=== PATIENT | female | born 1975 | race Caucasian/White ===

== ENCOUNTER 2016-07-24 06:57 | Emergency (ER) | payer MEDICAID ==
[~2016-07-24] VITALS: Ht 172.7 cm; Wt 75.0 kg
[~2016-07-24 06:57] MED LIST: DOCU-150 PO; FERR-63 PO; FOLI-43 PO; POTA20TA75 PO
[2016-07-24 08:26] LABS: BASOPHILS % 1.2 % (0.0-2.0); EOSINOPHILS % 1.5 % (0.0-5.0); HEMATOCRIT. 25.4 % (36.0-48.0); HEMOGLOBIN. 7.7 g/dL (12.0-16.0); LYMPHOCYTES % 26.1 % (20.0-50.0); MEAN CORPUSCULAR HEMOGLOBIN 19.8 pg (28.0-32.0); MEAN CORPUSCULAR HGB CONC 30.3 g/dL (31.0-37.0); MEAN CORPUSCULAR VOLUME 65.4 fL (81.0-99.0); MEAN PLATELET VOLUME 8.7 fl (7.4-10.4); MONOCYTES % 10.2 % (2.0-8.0); PLATELET 183 x1000/uL (130-400); RED BLOOD CELL COUNT 3.89 mill/uL (4.2-5.4); RED CELL DISTRIBUTION WIDTH 18.4 % (11.6-14.6); WHITE BLOOD COUNT 3.8 x1000/uL (4.5-11.0)
[2016-07-24 08:31] LABS: PARTIAL THROMBOPLASTIN TIME 25.7 sec (24.0-34.0); PROTHROMBIN TIME 10.4 sec
[2016-07-24 08:33] LABS: ADD RBC MORPHOLOGY YES; ALBUMIN 3.6 g/dL (3.4-5.0); ANION GAP 11; CALCIUM 8.5 mg/dL (8.5-10.1); CARBON DIOXIDE 26 mEq/L (21-32); CHLORIDE 111 mEq/L (98-107); DIFFERENTIAL COMMENT 1; INDEX HEMOLYSI 1 (1-3); INDEX ICTERIC 1 (1-4); INDEX LIPEMIC 1 (1-3); LIPASE 123 IU/L (73-393); UREA NITROGEN BLOOD 10 mg/dL (7-21)
[2016-07-24 08:39] LABS: ALANINE AMINOTRANSFERASE 17 IU/L (13-61); TROPONIN I < 0.02 ng/mL (0.00-0.04); eGFR > 60 mL/min (>60)
[2016-07-24 08:45] LABS: ANISOCYTOSIS 2+; PLATELET ESTIMATE NORMAL
[2016-07-24 08:47] LABS: HYPOCHROMASIA 2+
[2016-07-24] MEDS ORDERED: IBUPROFEN 400MG TABLET PO ONE (11:30)
[2016-07-24 12:05] VITALS: BP 123/78
== END 2016-07-24 12:08 | disposition home or self-care (01) ==
LOC: ER 08:45
DX: R07.89 Other chest pain (principal); Z79.899 Other long term (current) drug therapy; Z98.890 Other specified postprocedural states
CPT/HCPCS: 36415; 71010; 80053; 83690; 84484; 85025; 85610; 85730; 93005; 99285

== ENCOUNTER 2016-09-21 17:12 | Inpatient (IN) | payer MEDICAID ==
[~2016-09-21] VITALS: Ht 172.7 cm; Wt 79.4 kg
[2016-09-21 19:44] LABS: BASOPHILS % 0.8 % (0.0-2.0); CHLORIDE 109 mEq/L (98-107); HEMATOCRIT. 25.3 % (36.0-48.0); HEMOGLOBIN. 7.4 g/dL (12.0-16.0); LYMPHOCYTES % 25.5 % (20.0-50.0); MEAN CORPUSCULAR HEMOGLOBIN 17.8 pg (28.0-32.0); MEAN CORPUSCULAR VOLUME 61.1 fL (81.0-99.0); MEAN PLATELET VOLUME 9.1 fl (7.4-10.4); MONOCYTES % 9.1 % (2.0-8.0); NEUTROPHILS % 62.6 % (40.0-76.0); PLATELET 228 x1000/uL (130-400); RED BLOOD CELL COUNT 4.14 mill/uL (4.2-5.4); RED CELL DISTRIBUTION WIDTH 18.6 % (11.6-14.6)
[2016-09-21 19:44] LABS: CLARITY URINE CLOUDY (CLEAR); COLOR URINE YELLOW (YELLOW); GLUCOSE URINE NEGATIVE (NEGATIVE); KETONES URINE NEGATIVE (NEGATIVE); LEUKOCYTE ESTERASE URINE 3+ (NEGATIVE); NITRITE URINE NEGATIVE (NEGATIVE); OCCULT BLOOD URINE 1+ (NEGATIVE); PH URINE 5.5 (4.5-8.0); PROTEIN URINE NEGATIVE (NEGATIVE); SPECIFIC GRAVITY URINE 1.013 (1.005-1.030); UROBILINOGEN URINE 0.2 E.U./dL (0.2-1.0)
[2016-09-21 19:45] LABS: PROTHROMBIN TIME 10.4 sec
[2016-09-21 19:52] LABS: CARBON DIOXIDE 29 mEq/L (21-32)
[2016-09-21 20:43] LABS: PLATELET ESTIMATE NORMAL
[2016-09-21] MEDS ORDERED: CEFTRIAXONE 1 G PREMIX 50 ML IV ONE (20:45)
[2016-09-21 21:46] LABS: *AMPHETAMINES SCREEN URINE NEGATIVE (NEGATIVE); *BARBITURATES SCREEN URINE NEGATIVE (NEGATIVE); *BENZODIAZEPINES SCREEN URINE NEGATIVE (NEGATIVE); *COCAINE SCREEN URINE NEGATIVE (NEGATIVE); CANNABINOID URINE SCREEN NEGATIVE (NEGATIVE); METHADONE URINE SCREEN NEGATIVE (NEGATIVE); OPIATES URINE SCREEN NEGATIVE (NEGATIVE); PHENCYCLIDINE URINE SCREEN NEGATIVE (NEGATIVE)
[2016-09-21] MEDS: CEFTRIAXONE 1 G PREMIX 50 ML IV NR ×2 (21:51→22:02)
[2016-09-21] MEDS ORDERED: IPRATROPIUM/ALBUTEROL 0.5-3(2.5)MG/3ML NEB INH PRN (22:30)
[2016-09-21] MEDS ORDERED: CLONIDINE 0.1MG TABLET PO PRN (22:30)
[2016-09-21] MEDS ORDERED: ONDANSETRON HCL 4MG/2ML VIAL IV PRN (22:30)
[2016-09-21] MEDS ORDERED: MAGNESIUM/ALUMINUM HYDROXIDE/SIMETHICONE 30ML UDC PO PRN (22:30)
[2016-09-21 22:48] LABS: CARBON DIOXIDE 30 mEq/L (21-32); CHLORIDE 109 mEq/L (98-107); TOTAL IRON BINDING CAPACITY 419 ug/dL (250-450)
[2016-09-21 23:30] VITALS: BP 113/77
[2016-09-22] VITALS (12 sets, daily range): BP systolic 94–113; BP diastolic 56–98
[2016-09-22 08:03] LABS: CREATINE KINASE 64 IU/L (26-192); CREATINE KINASE MB FRACTION 1.3 ng/mL (0.5-3.6); TROPONIN I < 0.02 ng/mL (0.00-0.04)
[2016-09-22 08:34] LABS: UCG SCREEN NEGATIVE
[2016-09-22] MEDS: NITROFURANTOIN 100MG M/M CAPSULE PO SCH ×2 (09:03→21:45)
[2016-09-22] MEDS ORDERED: LEVO500T15 PO (12:56)
[2016-09-22] MEDS: ACETAMINOPHEN 325MG TABLET PO PRN ×2 (13:56→21:45)
[2016-09-22 15:18] LABS: HEMATOCRIT. 29.4 % (36.0-48.0); MEAN CORPUSCULAR HEMOGLOBIN 19.3 pg (28.0-32.0); MEAN CORPUSCULAR VOLUME 63.3 fL (81.0-99.0); MEAN PLATELET VOLUME 9.1 fl (7.4-10.4); PLATELET 213 x1000/uL (130-400); RED BLOOD CELL COUNT 4.64 mill/uL (4.2-5.4); RED CELL DISTRIBUTION WIDTH 19.8 % (11.6-14.6)
[2016-09-22 15:34] LABS: CREATINE KINASE 76 IU/L (26-192); CREATINE KINASE MB FRACTION 1.1 ng/mL (0.5-3.6); TROPONIN I < 0.02 ng/mL (0.00-0.04)
[2016-09-22] MEDS ORDERED: FAMOTIDINE 20MG/2ML VIAL IV SCH (15:45)
[2016-09-22] MEDS ORDERED: METHYLPREDNISOLONE SOD SUCC 40 MG/ML VIAL IV SCH (15:45)
[2016-09-22 15:55] LABS: PLATELET ESTIMATE NORMAL
[2016-09-22] MEDS: DIPHENHYDRAMINE 50MG/ML VIAL IV PRN ×2 (15:59→21:45)
[2016-09-23] VITALS: BP 103/62
[2016-09-23 04:00] VITALS: BP 105/51
[2016-09-23] MEDS: ACETAMINOPHEN 325MG TABLET PO PRN ×2 (04:44→12:15)
[2016-09-23] MEDS: DIPHENHYDRAMINE 50MG/ML VIAL IV PRN (04:44)
[2016-09-23 07:49] VITALS: BP 92/52
[2016-09-23] MEDS: NITROFURANTOIN 100MG M/M CAPSULE PO SCH (08:38)
[2016-09-23 12:13] VITALS: BP 109/59
[2016-09-23 13:22] VITALS: BP 109/59
== END 2016-09-23 18:55 | disposition home or self-care (01) | DRG 463 ==
LOC: ER 17:56 → EDBEDREQ 21:07 → 8WST 21:08 → ENRESERV 22:14 → 8WST 23:53
PROVIDERS: ADMIT Internal Medicine; ATTEND Internal Medicine
PROC: 30233N1 Transfusion of Nonautologous Red Blood Cells into Peripheral Vein, Percutaneous Approach (ICD-10-PCS; principal; 2016-09-22)
DX: N39.0 Urinary tract infection, site not specified (principal); D62 Acute posthemorrhagic anemia; G40.909 Epilepsy, unspecified, not intractable, without status epilepticus; N92.0 Excessive and frequent menstruation with regular cycle; N83.202 Unspecified ovarian cyst, left side; T80.92XA Unspecified transfusion reaction, initial encounter; Y84.8 Other medical procedures as the cause of abnormal reaction of the patient, or of later complication, without mention of misadventure at the time of the procedure; Y92.89 Other specified places as the place of occurrence of the external cause
CPT/HCPCS: 36415; 76830; 76856; 80048; 80053; 80305; 81001; 81025; 82550; 82553; 82728; 83540; 83550; 83690; 84443; 84484; 85025; 85044; 85610; 86850; 86900; 86920; 87077; 87086; 93005; 96365; 99285; J0696; J1200; J2405; J2920; J3490; J7050; P9016

== ENCOUNTER 2017-06-01 08:50 | Emergency (ER) | payer MEDICAID ==
[~2017-06-01] VITALS: Ht 172.7 cm; Wt 89.0 kg
[~2017-06-01 08:50] MED LIST changes: -POTA20TA75 PO
[2017-06-01] MEDS: ACETAMINOPHEN 500MG TABLET PO ONE (09:45)
[2017-06-01 13:00] VITALS: BP 118/90
== END 2017-06-01 13:15 | disposition home or self-care (01) ==
LOC: ER 09:25
DX: B34.9 Viral infection, unspecified (principal); D50.9 Iron deficiency anemia, unspecified; Z98.890 Other specified postprocedural states
CPT/HCPCS: 71045; 81025; 87070; 87430; 87804; 99285

== ENCOUNTER 2018-01-30 09:18 | Emergency (ER) | payer MEDICAID ==
[~2018-01-30] VITALS: Ht 172.7 cm; Wt 91.0 kg
[2018-01-30] MEDS ORDERED: KETOROLAC 30MG/ML VIAL IV STA (10:39)
[2018-01-30] MEDS ORDERED: ASPIRIN 81MG TABLET PO ONE (10:45)
[2018-01-30 11:20] LABS: BASOPHILS % 2.1 % (0.0-2.0); EOSINOPHILS % 3.3 % (0.0-5.0); HEMATOCRIT. 26.2 % (36.0-48.0); LYMPHOCYTES % 18.5 % (20.0-50.0); MEAN CORPUSCULAR HEMOGLOBIN 19.5 pg (28.0-32.0); MEAN CORPUSCULAR VOLUME 64.1 fL (81.0-99.0); MEAN PLATELET VOLUME 8.9 fl (7.4-10.4); MONOCYTES % 7.5 % (2.0-8.0); NEUTROPHILS % 68.6 % (40.0-76.0); PLATELET 250 x1000/uL (130-400); RED BLOOD CELL COUNT 4.09 mill/uL (4.2-5.4)
[2018-01-30 11:31] LABS: PARTIAL THROMBOPLASTIN TIME 28.3 sec (23.4-31.0); PROTHROMBIN TIME 9.8 sec (9.1-11.1)
[2018-01-30 11:32] LABS: CHLORIDE 109 mEq/L (98-107)
[2018-01-30 11:36] LABS: HCG SCREEN NEGATIVE
[2018-01-30 11:47] LABS: CARBAMAZEPINE 4.2 ug/mL (4-12)
[2018-01-30 11:56] LABS: PLATELET ESTIMATE NORMAL
[2018-01-30 16:11] VITALS: BP 97/48
== END 2018-01-30 16:11 | disposition home or self-care (01) ==
LOC: ER 12:30
DX: R07.9 Chest pain, unspecified (principal); D64.9 Anemia, unspecified; E83.51 Hypocalcemia; R03.0 Elevated blood-pressure reading, without diagnosis of hypertension; D72.819 Decreased white blood cell count, unspecified; G40.909 Epilepsy, unspecified, not intractable, without status epilepticus; Z98.890 Other specified postprocedural states
CPT/HCPCS: 36415; 71045; 80053; 80156; 81025; 83880; 84484; 84703; 85025; 85610; 85730; 93005; 96374; 99285; J1885

== ENCOUNTER 2018-02-24 10:51 | Emergency (ER) | payer MEDICAID ==
[~2018-02-24] VITALS: Ht 172.7 cm; Wt 91.0 kg
[2018-02-24 16:29] LABS: CLARITY URINE CLOUDY (CLEAR); COLOR URINE YELLOW (YELLOW); KETONES URINE NEGATIVE (NEGATIVE); LEUKOCYTE ESTERASE URINE NEGATIVE (NEGATIVE); NITRITE URINE POSITIVE (NEGATIVE); OCCULT BLOOD URINE TRACE (NEGATIVE); PH URINE 5.5 (4.5-8.0); PROTEIN URINE NEGATIVE (NEGATIVE); SPECIFIC GRAVITY URINE 1.028 (1.005-1.030)
[2018-02-24 17:02] LABS: BASOPHILS % 0.8 % (0.0-2.0); EOSINOPHILS % 2.7 % (0.0-5.0); HEMATOCRIT. 29.2 % (36.0-48.0); HEMOGLOBIN. 8.7 g/dL (12.0-16.0); LYMPHOCYTES % 23.9 % (20.0-50.0); MEAN CORPUSCULAR HEMOGLOBIN 18.8 pg (28.0-32.0); MEAN PLATELET VOLUME 9.9 fl (7.4-10.4); MONOCYTES % 7.3 % (2.0-8.0); NEUTROPHILS % 65.3 % (40.0-76.0); PLATELET 264 x1000/uL (130-400); RED BLOOD CELL COUNT 4.62 mill/uL (4.2-5.4); RED CELL DISTRIBUTION WIDTH 17.9 % (11.6-14.6)
[2018-02-24 17:06] LABS: CHLORIDE 107 mEq/L (98-107)
[2018-02-24 17:45] LABS: PLATELET ESTIMATE NORMAL
[2018-02-24] MEDS ORDERED: NITROFURANTOIN 100MG M/M CAPSULE PO ONE (19:15)
[2018-02-24] MEDS ORDERED: SODIUM CHLORIDE 0.9% 1,000 ML IV ONE (19:15)
[2018-02-24 19:22] LABS: INR 0.9; PARTIAL THROMBOPLASTIN TIME 27.1 sec (23.4-31.0); PROTHROMBIN TIME 9.5 sec (9.1-11.1)
[2018-02-24 21:11] VITALS: BP 102/56
== END 2018-02-24 21:12 | disposition home or self-care (01) ==
LOC: ER 10:51
DX: R00.2 Palpitations (principal); R06.02 Shortness of breath; D64.9 Anemia, unspecified; Z98.890 Other specified postprocedural states
CPT/HCPCS: 36415; 71045; 76830; 76856; 80053; 81003; 81025; 83605; 83735; 83880; 84484; 85025; 85610; 85730; 86850; 86900; 86901; 87040; 87086; 93005; 96360; 96361; 99284; J7030

== ENCOUNTER 2018-04-28 12:31 | Emergency (ER) | payer MEDICAID ==
[~2018-04-28] VITALS: Ht 175.3 cm; Wt 91.5 kg
[2018-04-28 21:36] LABS: EOSINOPHILS % 2.7 % (0.0-5.0); HEMATOCRIT. 26.4 % (36.0-48.0); HEMOGLOBIN. 7.6 g/dL (12.0-16.0); LYMPHOCYTES % 26.9 % (20.0-50.0); MEAN CORPUSCULAR HEMOGLOBIN 17.4 pg (28.0-32.0); MEAN CORPUSCULAR VOLUME 60.4 fL (81.0-99.0); MEAN PLATELET VOLUME 8.8 fl (7.4-10.4); MONOCYTES % 7.8 % (2.0-8.0); NEUTROPHILS % 61.6 % (40.0-76.0); PLATELET 232 x1000/uL (130-400); RED BLOOD CELL COUNT 4.37 mill/uL (4.2-5.4); RED CELL DISTRIBUTION WIDTH 19.9 % (11.6-14.6)
[2018-04-28 21:42] LABS: CHLORIDE 108 mEq/L (98-107)
[2018-04-28 21:49] LABS: PLATELET ESTIMATE NORMAL
[2018-04-28 21:53] LABS: B-HCG QUANTITATIVE < 1 mIU/mL (<3)
[2018-04-28] MEDS ORDERED: DIPHENHYDRAMINE 50MG/ML VIAL IV ONE (23:45)
[2018-04-29 06:33] VITALS: BP 113/76
== END 2018-04-29 06:37 | disposition home or self-care (01) ==
LOC: ER 12:31
DX: R42 Dizziness and giddiness (principal); D64.9 Anemia, unspecified; N92.0 Excessive and frequent menstruation with regular cycle
CPT/HCPCS: 36415; 80053; 84702; 85025; 86850; 86900; 86901; 86920; 96374; 99283; J1200; Z7610; P9016

== ENCOUNTER 2019-07-13 00:34 | Emergency (ER) | payer MEDICAID ==
[~2019-07-13] VITALS: Ht 175.3 cm; Wt 98.8 kg
[2019-07-13 02:21] LABS: CHLORIDE 110 mEq/L (98-107)
[2019-07-13 02:46] LABS: BASOPHILS % 0.9 % (0.0-2.0); EOSINOPHILS % 3.3 % (0.0-5.0); HEMATOCRIT. 23.9 % (36.0-48.0); HEMOGLOBIN. 7.1 g/dL (12.0-16.0); LYMPHOCYTES % 27.2 % (20.0-50.0); MEAN CORPUSCULAR HEMOGLOBIN 17.4 pg (28.0-32.0); MEAN CORPUSCULAR VOLUME 58.5 fL (81.0-99.0); NEUTROPHILS % 60.6 % (40.0-76.0); PLATELET 224 x1000/uL (130-400); RED BLOOD CELL COUNT 4.08 mill/uL (4.2-5.4); RED CELL DISTRIBUTION WIDTH 20.4 % (11.6-14.6)
[2019-07-13 06:50] LABS: PLATELET ESTIMATE NORMAL
[2019-07-13 08:05] VITALS: BP 95/48
== END 2019-07-13 08:10 | disposition home or self-care (01) ==
LOC: ER 00:34
DX: D63.8 Anemia in other chronic diseases classified elsewhere (principal); D25.9 Leiomyoma of uterus, unspecified; N93.8 Other specified abnormal uterine and vaginal bleeding; Z98.890 Other specified postprocedural states; Z79.899 Other long term (current) drug therapy
CPT/HCPCS: 36415; 80053; 84443; 85025; 85044; 86850; 86900; 86920; 99285; P9016

== ENCOUNTER 2020-04-18 23:57 | Emergency (ER) | payer OTHER ==
[~2020-04-18] VITALS: Ht 172.7 cm; Wt 93.0 kg
[2020-04-19 02:00] LABS: EOSINOPHILS % 2.2 % (0.0-5.0); HEMATOCRIT. 23.6 % (36.0-48.0); LYMPHOCYTES % 24.9 % (20.0-50.0); MEAN CORPUSCULAR HEMOGLOBIN 16.2 pg (28.0-32.0); MEAN CORPUSCULAR VOLUME 56.4 fL (81.0-99.0); MONOCYTES % 7.8 % (2.0-8.0); NEUTROPHILS % 64.1 % (40.0-76.0); PLATELET 275 x1000/uL (130-400); RED BLOOD CELL COUNT 4.18 mill/uL (4.2-5.4); RED CELL DISTRIBUTION WIDTH 20.8 % (11.6-14.6)
[2020-04-19 02:01] LABS: CHLORIDE 108 mEq/L (98-107)
[2020-04-19 02:09] LABS: HCG SCREEN NEGATIVE
[2020-04-19 02:17] LABS: HEMOGLOBIN. 6.8 g/dL (12.0-16.0)
[2020-04-19 05:35] LABS: PLATELET ESTIMATE NORMAL
[2020-04-19] MEDS ORDERED: ACETAMINOPHEN 325MG TABLET PO PRN (10:00)
[2020-04-19] MEDS ORDERED: HYDROCODONE/ACETAMINOPHEN 5/325MG TABLET PO PRN (10:00)
[2020-04-19] MEDS ORDERED: ONDANSETRON HCL 4MG/2ML INJ IV PRN (10:00)
[2020-04-19] MEDS ORDERED: CLONIDINE 0.1MG TABLET PO PRN (10:00)
[2020-04-19] MEDS ORDERED: MAGNESIUM/ALUMINUM HYDROXIDE/SIMETHICONE 30ML UDC PO PRN (10:00)
[2020-04-19 10:49] LABS: HEMATOCRIT 27.4 % (36.0-48.0); MEAN CORPUSCULAR HEMOGLOBIN 17.4 pg (28.0-32.0); MEAN CORPUSCULAR VOLUME 59.5 fL (81.0-99.0); PLATELET 254 x1000/uL (130-400); RED BLOOD CELL COUNT 4.61 mill/uL (4.2-5.4); RED CELL DISTRIBUTION WIDTH 22.2 % (11.6-14.6)
[2020-04-19 12:26] VITALS: BP 117/61
[2020-04-19 14:20] LABS: CHLORIDE 108 mEq/L (98-107)
[2020-04-19 14:26] LABS: TOTAL IRON BINDING CAPACITY 448 ug/dL (250-450)
[2020-04-20] MEDS ORDERED: OMEPRAZOLE 20MG CAPSULE EXTENDED RELEASE PO SCH (07:50)
[2020-04-20] MEDS ORDERED: FERROUS SULFATE 325MG TABLET PO SCH (09:00)
== END 2020-04-19 13:05 | disposition home or self-care (01) ==
LOC: ER 23:57 → CANBEDREQ 04-19 19:40
DX: D50.9 Iron deficiency anemia, unspecified (principal); N92.0 Excessive and frequent menstruation with regular cycle; R53.1 Weakness; Z98.890 Other specified postprocedural states
CPT/HCPCS: 36415; 71045; 80053; 83540; 83550; 84703; 85025; 85027; 86850; 86900; 86901; 86920; 93005; 93970; 99285; Z7610; P9016